=== PATIENT | male | born 1970 | race Caucasian/White ===

== ENCOUNTER 2018-11-20 05:59 | Day surgery (SDC) | payer OTHER ==
--- NOTE | 2018-11-14 17:35 | HP ---
CC: Dr. Katia Brooks, [facility]* ADMISSION HISTORY AND PHYSICAL: DATE OF ADMISSION/SURGERY: 11/20/18 ATTENDING SURGEON: Dr. Angelo Schaffer* (MARÍA Lazo dictating). CHIEF COMPLAINT: Right upper quadrant pain. HISTORY OF PRESENT ILLNESS: This is a 48-year-old male with past history of hepatitis C, status post treatment with undetectable virus as of late last year , who has experienced intermittent right upper quadrant pain over the past 3 years or so. Pain typically occurs after eating and most often in the evening. Of late, it has been more specifically associated with fatty foods and he has had increasing episodes in recent months. He describes stabbing pain in the right upper quadrant, sometimes radiating to the back with episodes lasting approximately 6 hours, but unassociated with nausea, vomiting, fever, chills, or darkened urine. There is a positive family history of gallbladder disease in his mother. He was seen initially by Dr. Schaffer on 10/03/18. An ultrasound was performed on 10/07/18 showing no stones, though the gallbladder was partially contracted. There was a question of gallbladder wall thickening and the common duct was measured at 0.9 cm. A subsequent HIDA scan with CCK on 10/10 did show visualization of the gallbladder, but with reduced ejection fraction of 15%. Dr. Schaffer has discussed with him the indications for surgery, the risks, benefits, and alternatives and the patient would like to proceed as scheduled with laparoscopic cholecystectomy. PAST MEDICAL HISTORY: Opioid dependence (on chronic Suboxone therapy), tobacco dependence, past history of hepatitis C as noted above. He did undergo liver biopsy as part of his diagnosis and workup. PAST SURGICAL HISTORY: His only other surgery was wisdom teeth extraction without any problems reported. CURRENT MEDICATIONS: 1. Suboxone 12/3 and 8/2 one each daily (he usually splits the doses). 2. Nicotine lozenge 4 mg q.2 hours p.r.n. (he uses infrequently). 3. Narcan intranasal spray p.r.n. DRUG ALLERGIES: None known. FAMILY HISTORY: Positive for DVT in his father, though he is unsure if it was provoked. No other bleeding or clotting problems. No problems as far as he is aware with general anesthesia. SOCIAL HISTORY: The patient currently smokes approximately 5 cigarettes per day. He also vapes. He denies use of alcohol and has not used any opioids in the past 16 months. REVIEW OF SYSTEMS: General: No other acute illnesses other than described in the HPI. He does describe weight loss of approximately 15 pounds over the past 16 months. HEENT: No problems reported other than mild sleep apnea that he states was in part related to his significant overbite. He has not been treated for that. Cardiovascular: No history of chest pain, palpitations, hypertension, or heart murmur. Respiratory: No history of asthma, chronic cough, or shortness of breath. GI: As above per HPI. No significant lower GI symptoms. History of hepatitis C as noted above. No additions. : No problems reported. He denies dark urine in association with the right upper quadrant pain. Endocrine: No diabetes or thyroid dysfunction. PHYSICAL EXAMINATION GENERAL: Well-nourished, somewhat thin male, in no acute distress. VITAL SIGNS: Height 5 feet 8 inches, weight 133 pounds, BMI 20. Temperature 97.7, blood pressure 114/76, pulse 66. HEENT: Pupils are equal, round, and reactive. EOMs intact. No conjunctival pallor or scleral icterus. Oropharynx: Teeth in good repair. No intraoral lesions. NECK: No lymphadenopathy, thyromegaly, or masses. LUNGS: Clear to auscultation. No rales or wheezes. HEART: Regular rate and rhythm. No murmur noted. ABDOMEN: Soft, nontender to palpation. No palpable masses or organomegaly. GENITALIA: Deferred. RECTAL: Deferred. BACK: No spinous process or CVA tenderness. EXTREMITIES: No edema. NEUROLOGICAL: Grossly intact. SKIN: Warm and dry. No suspicious rashes or lesions. IMPRESSION: Right upper quadrant pain (gallbladder dyskinesia). PLAN: Laparoscopic cholecystectomy. MARÍA LAZO [id number]/[facility] #: [id number] BLAKE
[~2018-11-20 05:59] MED LIST: Buffered Lidocaine 1% SYRIN* 1 ML/SYRINGE INTRADERM ONE
[2018-11-20] MEDS ORDERED: Gabapentin CAP(*) 300 MG PO ONE (06:00)
[2018-11-20] MEDS ORDERED: Famotidine IV* 10 MG/ML 2 ML (20 mg) IV ONE (06:00)
[2018-11-20] MEDS ORDERED: Lactated Ringers 1000 ML Bag* 1,000 ML IV SCH (06:00)
[2018-11-20] MEDS ORDERED: celeCOXIB CAP* 200 MG PO ONE (06:00)
[2018-11-20] MEDS ORDERED: Gabapentin CAP(*) 300 MG ONE (06:13)
[2018-11-20] MEDS ORDERED: Famotidine IV* 10 MG/ML 2 ML (20 mg) ONE (06:13)
[2018-11-20] MEDS ORDERED: celeCOXIB CAP* 100 MG ONE (06:13)
[2018-11-20] MEDS ORDERED: Buffered Lidocaine 1% SYRIN* 1 ML/SYRINGE INTRADERM ONE (06:13)
[2018-11-20] MEDS ORDERED: ceFAZolin 2 GM PREMIX in ORs 2 GM/50 ML BAG IVPB ONE (06:13)
[2018-11-20] MEDS ORDERED: Ondansetron INJ* 2 MG/ML VIAL ONE (07:02)
[2018-11-20] MEDS ORDERED: Cisatracurium* 2 MG/ML MDV 5 ML ONE (07:02)
[2018-11-20] MEDS ORDERED: Propofol* 10 MG/ML 20 ML BTL ONE (07:02)
[2018-11-20] MEDS ORDERED: Lidocaine 2% PF * 5 ML VIAL ONE (07:02)
[2018-11-20] MEDS ORDERED: Dexamethasone IV* 4 MG/ML 1 ML (4 MG) ONE (07:02)
[2018-11-20] MEDS ORDERED: KETAMINE HCL* 50 MG/ML 10 ML VIAL ONE (07:03)
[2018-11-20] MEDS ORDERED: Midazolam* 1 MG/ML 5 ML VIAL (5 MG) ONE (07:03)
[2018-11-20] MEDS ORDERED: Bupivacaine 0.25% W/EPI* 10 ML SDV ONE (07:12)
[2018-11-20] MEDS ORDERED: EPHEDrine (Pressors)* 50 MG/ML VIAL ONE (07:51)
[2018-11-20] MEDS ORDERED: Acetaminophen IV 1GM/100ML * 100 ML ONE (07:52)
[2018-11-20] MEDS ORDERED: Ondansetron INJ* 2 MG/ML VIAL IV PRN (08:18)
[2018-11-20] MEDS ORDERED: Neostigmine Methylsulfate* 1 MG/ML 10 ML VIAL (1 mg/ml) ONE (08:23)
[2018-11-20] MEDS ORDERED: Glycopyrrolate IV* 0.2 MG/ML 1 ML VIAL ONE (08:23)
--- NOTE | 2018-11-20 08:40 | BRIEFOPN ---
Brief Operative Note - Surgery Procedures: Procedures Pre-OP Diagnoses: chronic cholecystitis Post-op Diagnosis: same Procedure: Laparoscopic cholecystectomy Surgeon: Karime Asst: Emilie Anethesia: DIVINE EBL: <50cc IVF: 1500cc LR Specimen: gallbladder Drains: none
--- NOTE | 2018-11-20 10:01 | OP ---
CC: Dr. Katia Brooks * DATE OF OPERATION: 11/20/18 - MERGED WITH [facility] DATE OF : 72 SURGEON: Angelo Schaffer MD. IT TELECOM TECHNICIAN: Emilie. ANESTHESIA: General. ANESTHESIOLOGIST: Dr. Jo. PRE-OP DIAGNOSIS: Biliary dyskinesia, chronic cholecystitis. POST-OP DIAGNOSIS: Biliary dyskinesia, chronic cholecystitis. OPERATIVE PROCEDURE: Laparoscopic cholecystectomy. ESTIMATED BLOOD LOSS: Less than 50 cc. IV FLUIDS: 1500 cc crystalloid fluid given. SPECIMEN: Gallbladder. DRAINS: None. DESCRIPTION OF PROCEDURE: The patient was identified in the preoperative area assessed by the anesthesiologist. I marked him. Consent was signed. The abdominal hair was clipped. He was taken to the operating room and placed on the operating table in supine position. Preoperative antibiotics were given. Sequential device were placed on the bilateral lower extremities. General anesthesia was induced. The patient's abdomen was prepped and draped in the standard surgical fashion. Time-out was performed. An umbilical incision was made. The skin folds were elevated anteriorly and a Veress needle was inserted into the abdominal cavity, which was then allowed to insufflate to a pressure of 15 mmHg. Veress needle was removed and a 5-mm trocar inserted with an OptiView. No evidence of injury or bleeding intraoperatively. Additional trocars were placed in the following positions: A 5-mm subxiphoid area and two 5-mm along the right costal margin. Table was repositioned. The gallbladder was identified adhered to the omentum. This was taken out sharply to allow us to hold the fundus of the gallbladder and elevate it above the liver. At this point, we could see the critical view with cystic duct and common bile duct. The peritoneum was taken off the gallbladder laterally and medially. Cystic duct was isolated and doubly clipped and ligated. Cystic artery was doubly clipped and ligated. The gallbladder was removed from the liver bed and placed in the endoscopic retrieval bag. Review of the abdomen showed that we had a injury to the liver where it attached to the falciform likely from retraction of the fundus of the gallbladder since the patient had a large liver. This was minimally oozing and we gained hemostasis with electrocautery, but then added a small piece of Surgicel to this site. We washed it and noted that there was no bleeding at this site. I reviewed the cystic duct stump, cystic artery stump, showed no bleeding or bile leak. The gallbladder fossa was dry. Next, the gallbladder was removed from the umbilical port site with its endoscopic retrieval bag. The abdomen was allowed to collapse. The umbilical fascia was closed with 2-0 Vicryl stitch in a simple fashion. We then insufflated again to ensure that we did not orange picker any intraabdominal contents. Next, the abdomen was allowed to collapse. Trocars were removed under direct vision and all 4 skin incisions were reapproximated with 4-0 Monocryl subcuticular suture followed by Steri-Strips and sterile dressing. [id number]/[facility] #: [id number] [facility]
[2018-11-20 10:59] VITALS: BP 155/78
== END 2018-11-20 11:19 | disposition home or self-care (01) ==
LOC: OR 05:59
PROVIDERS: ATTEND Surgery
DX: K81.1 Chronic cholecystitis (principal); R10.11 Right upper quadrant pain; F17.219 Nicotine dependence, cigarettes, with unspecified nicotine-induced disorders; K21.9 Gastro-esophageal reflux disease without esophagitis; F41.8 Other specified anxiety disorders; Z79.891 Long term (current) use of opiate analgesic
CPT/HCPCS: 88304; A9270-GY; J0690; J1100; J2250; J2405; J2704; J2710